=== PATIENT | female | born 1990 | race African-American/Black ===

== ENCOUNTER 2017-08-01 23:40 | Emergency (ER) | payer OTHER ==
[~2017-08-01 23:40] MED LIST: METRONIDAZOLE500 MG PO
[2017-08-02 00:32] VITALS: BP 107/73
[2017-08-02] MEDS ORDERED: BACLOFEN20 M1 PO (00:57)
[2017-08-02] MEDS ORDERED: IBUPROFEN800 M1 PO (00:57)
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
== END 2017-08-02 01:06 ==
LOC: ERH 23:40
DX: M62.830 Muscle spasm of back (principal)
CPT/HCPCS: 81025